=== PATIENT | male | born 1955 | race Caucasian/White ===

== ENCOUNTER → 2017-12-31 18:20 | Outpatient (REF) | payer BC, SELFPAY | LOC: LAB 18:20 | PROVIDERS: Visit Provider Urology | DX: N99.89 Other postprocedural complications and disorders of genitourinary system (principal) | CPT/HCPCS: 87086 ==

== ENCOUNTER → 2019-06-15 10:25 | Outpatient (CLI) | payer BC, SELFPAY ==
--- NOTE | 2019-06-15 10:29 | XR_ITS ---
XR shoulder RT min 2V HISTORY: ITS.REASON: FALL 06/11/19 RT SHOULDER PAIN ORDERING PHYSICIAN: Juwan Monte PATIENT AGE: 63 years Comparison: None FINDINGS: No fracture or dislocation. No lytic or blastic change. There is normal mineralization. There is narrowing of the caudal aspect of the glenohumeral joint. The right AC joint is normal. IMPRESSION: No acute process. Degenerative change at the glenohumeral joint.
--- NOTE | 2019-06-15 10:29 | XR_ITS ---
XR ribs RT min 3V w CXR1V HISTORY: ITS.REASON: FALL 06/11/19 CHEST PAIN ORDERING PHYSICIAN: Juwan Monte PATIENT AGE: 63 years Comparison: None FINDINGS: Bone density is normal. There is some cortical thickening suggesting old healed posterior lateral right sixth and seventh rib fractures. There is no acute rib fracture. There is a punctate benign calcified granuloma in the right upper lobe. There is a 1.3 cm calcific density overlying the lower pole of the left renal shadow. Impression: No acute rib fracture as discussed above. Right opaque density at the left mid abdomen could be a renal stone although differential would include medication in the bowel or lymph node calcification.
== END ==
PROVIDERS: PCP Internal Medicine; Visit Provider Internal Medicine
DX: R07.89 Other chest pain (principal); M25.511 Pain in right shoulder
CPT/HCPCS: 71101; 73030

== ENCOUNTER → 2019-08-17 10:49 | Outpatient (CLI) | payer BC, SELFPAY ==
--- NOTE | 2019-08-17 11:11 | ECG_ITS ---
APPROVED REPORT Exam: Resting ECG HR:68 bpm ECG Measurements Heart Rate 68 AXES WV 134 P 17 QRSd 68 QRS -8 QT 372 T 40 QTc 395 <Conclusion> Normal sinus rhythm Normal ECG Electronically signed by : Juwan Monte, 08/18/2019 13:09:09
[2019-08-17 11:42] LABS: Basophils % 0.6 % (0.1-2.0); Eosinophils # 0.1 K/mm3 (0.0-0.4); Eosinophils % 1.8 % (0.1-12.0); Hematocrit 49.1 % (42.0-52.0); Lymphocytes # 1.4 K/mm3 (0.7-4.5); Lymphocytes % 21.3 % (10-50); Mean Corpuscular HGB Conc 34.6 g/dL (31.8-35.4); Mean Corpuscular Hemoglobin 32.5 pg (27.0-31.2); Mean Platelet Volume 8.3 fl (7.4-10.4); Monocytes # 0.3 K/mm3 (0.1-1.0); Monocytes % 5.4 % (1.7-9.3); Neutrophils # 4.5 K/mm3 (1.8-7.8); Platelet Count 294 K/mm3 (142-424); Red Blood Count 5.22 M/mm3 (4.60-6.20); White Blood Count 6.3 K/mm3 (4.8-10.8)
[2019-08-17 12:46] LABS: Alanine Aminotransferase 26 U/L (12-78); Albumin Level 3.9 gm/dL (3.4-5.0); Albumin/Globulin Ratio 1.4 (1.1-1.8); Alkaline Phosphatase 88 U/L (46-116); Anion Gap 12.3 mEq/L (5-15); Aspartate Amino Transferase 18 U/L (15-37); Bilirubin,Total 0.8 mg/dL (0.2-1.0); Blood Urea Nitrogen 17 mg/dL (7-18); Calcium 9.3 mg/dL (8.5-10.1); Carbon Dioxide 31 mmol/L (21.0-32.0); Chloride 102 mmol/L (98-107); Creatinine,Serum 0.84 mg/dL (0.70-1.30); Estimated Glomerular Filt Rate 92 ml/min (>60); GFR (African American) 112 ML/MIN (>60); Globulin 2.8 gm/dl (1.3-3.2); Glucose 91 mg/dL (74-106); Potassium 4.3 mmoL/L (3.5-5.1); Sodium 141 mmol/L (136-145); Total Protein,Serum 6.7 gm/dL (6.4-8.2)
== END ==
PROVIDERS: PCP Internal Medicine; Visit Provider Internal Medicine
DX: Z01.818 Encounter for other preprocedural examination (principal); I10 Essential (primary) hypertension
CPT/HCPCS: 36415; 80053; 85025; 93005

== ENCOUNTER → 2019-09-09 10:51 | Outpatient (CLI) | payer BC, SELFPAY | PROVIDERS: Visit Provider Urology | DX: Z12.5 Encounter for screening for malignant neoplasm of prostate (principal) | CPT/HCPCS: 36415; G0103 ==

== ENCOUNTER 2019-12-10 08:30 | Outpatient (RCR) | payer BC, SELFPAY | END 2019-12-10 08:35 | disposition home or self-care (01) | LOC: PT 08:30 | PROVIDERS: PCP Internal Medicine; Visit Provider Orthopaedic Surgery | DX: M75.101 Unspecified rotator cuff tear or rupture of right shoulder, not specified as traumatic (principal) | CPT/HCPCS: 97010; 97014; 97016; 97110; 97140; 97163; 97164; G0283 ==

== ENCOUNTER 2020-11-26 09:39 | Emergency (ER) | payer MEDICARE, SELFPAY ==
[2020-11-26 10:05] VITALS: BP 125/81; PULSE 65; RESP 20; TEMP 37.1; O2SAT 97; BMI 24.3
--- NOTE | 2020-11-26 10:17 | HMH.EDUTC ---
[facility] [place] Impression: Low back pain Qualifiers: Chronicity: acute Back pain laterality: left Sciatica presence: with sciatica Sciatica laterality: sciatica of left side Qualified Code(s): M54.42 - Lumbago with sciatica, left side Radiculopathy Qualifiers: Spinal region: lumbar Qualified Code(s): M54.16 - Radiculopathy, lumbar region Disposition: Home, Self-Care Condition on Discharge: Good Instructions: DI for Low Back Pain, DI for Sciatica Additional Instructions: Go home and rest. It would be best if you rested tomorrow too. No heavy lifting. No twisting. Take the oral medications as directed. The muscle relaxer (robaxin) will make you drowsy, so don't drive or operate heavy machinery after taking it. Don't start the oral steroids (medrol dose pack) until tomorrow, since you had the shots in here today. Follow up with your regular doctor. GO TO THE ER FOR ANY WORSENING SYMPTOMS OR CONCERN, ESPECIALLY BOWEL OR BLADDER ISSUES, SADDLE AREA NUMBNESS, FEVER, ETC *Increase fluids. Water not Soda or Tea Prescriptions: methylPREDNISolone [Medrol] 4 mg PO DIRECTED 6 Days #21 tab.ds.pk Transmission Status: Received by [id number] Methocarbamol [Robaxin 500mg Tab] 500 mg PO BIDP PRN #30 tab PRN Reason: Muscle Spasm Transmission Status: Received by [id number] Referrals: Juwan Monte [Primary Care Provider] - Time of Disposition: 10:46 Medical Decision Making - Medical Records Medical records reviewed: No: I reviewed the patient's medical records. - Jackson Inquiry Pt receiving controlled substance: No Vital Signs: 11/26/20 10:05 11/26/20 10:48 Temperature 98.8 F 98.8 F Temperature Source Oral Pulse Rate 65 Pulse Rate [Right Brachial] 65 Respiratory Rate 20 20 Blood Pressure 125/81 Blood Pressure [Right Arm] 125/81 Blood Pressure Mean [Right Arm] 95 Blood Pressure Source [Right Arm] Automatic Cuff Blood Pressure Position [Right Arm] Sitting 02 Sat by Pulse Oximetry 97 Oxygen Delivery Method Room Air Orders (Tests/Meds): ED MEDICATIONS Discontinued Medications Generic Name Dose Route Start Last Admin Trade Name Freq PRN Reason Stop Dose Admin Ketorolac Tromethamine 60 mg 11/26/20 10:27 11/26/20 10:34 Ketorolac 60mg/2ml Vial IM 11/26/20 10:28 60 mg ONCE ONE Administration Methylprednisolone Sodium Succinate 125 mg 11/26/20 10:27 11/26/20 10:34 Methylprednisolone Sod Succ 125mg Vial IM 11/26/20 10:28 125 mg ONCE ONE Administration [facility] [place] - General Stated complaint: lower back pain, no ao Time Seen by Provider: 11/26/20 10:17 - History of Present Illness Provider Complaint: He states that he bent over yesterday and he must have pulled something in his back. He has had low back pain that radiates down his left leg. He has a long history of low back pain. - Related Data Home Medications Medication Instructions Recorded Confirmed hydrochlorothiazide 25 mg tablet 25 mg PO DAILY 09/09/18 09/08/19 nebivolol 5 mg tablet 5 mg PO DAILY 09/09/18 09/08/19 Previous Rx's Medication Instructions Recorded Cyclobenzaprine HCl [Flexeril 10mg 10 mg PO TID PRN #15 tab 01/03/20 tablet] methylPREDNISolone [Medrol 4mg 4 mg PO DIRECTED #21 tab 01/03/20 tab] Methocarbamol [Robaxin 500mg Tab] 500 mg PO BIDP PRN #30 tab 11/26/20 methylPREDNISolone [Medrol] 4 mg PO DIRECTED 6 Days #21 11/26/20 tab.ds.pk Allergies Allergy/AdvReac Type Severity Reaction Status Date / Time Sulfa (Sulfonamide Allergy Unknown SWELLING Verified 09/08/19 11:24 Antibiotics) lisinopril Allergy Verified 09/08/19 11:24 [facility] History - Hepatitis A Screen Attestation statement:: This patient has been screened for Hepatitis A risk factors. I have reviewed the patient's past medical history: Yes Medical History: Reports:: Hyperlipidemia Other Medical History: Reports: Arthritis Laterality Cases:
[2020-11-26 10:48] VITALS: BP 125/81; PULSE 65; RESP 20; TEMP 37.1; O2SAT 97
== END 2020-11-26 10:50 | disposition home or self-care (01) ==
PROVIDERS: Emergency Provider Nurse Practitioner Family; PCP Internal Medicine
DX: M54.42 Lumbago with sciatica, left side (principal); M54.16 Radiculopathy, lumbar region; E78.5 Hyperlipidemia, unspecified; Z79.899 Other long term (current) drug therapy
CPT/HCPCS: G0463; 96372; 99202

== ENCOUNTER → 2021-03-29 14:42 | Outpatient (CLI) | payer MEDICARE, SELFPAY ==
--- NOTE | 2021-03-29 14:38 | ECG_ITS ---
APPROVED REPORT Exam: Resting ECG HR:73 bpm ECG Measurements Heart Rate 73 AXES ID 154 P 61 QRSd 80 QRS 30 QT 378 T 35 QTc 416 Conclusion Normal sinus rhythm Normal ECG Electronically signed by : Gino Baker, 03/29/2021 16:55:21
--- NOTE | 2021-03-29 14:48 | XR_ITS ---
PROCEDURE: XR CHEST 2V CLINICAL HISTORY: Z01.818, M54.5 Shortness of breath COMPARISON: CR CXR CHEST(2 VIEWS-NOT PORTABLE) from 06/19/[address] CHEST W/O CONTRAST from 06/26/2017 FINDINGS: The cardiomediastinal silhouette and pulmonary vascularity are within normal limits. Chronic changes are present in the right midlung consistent with some scarring. No lobar consolidation or collapse. Degenerative changes with spurring noted in the midthoracic spine anteriorly IMPRESSION: No change with no acute finding Dictated by: Jose Aguayo MD 03/29/2021 15:02 Jose Aguayo MD in [place] 03/29/2021 15:02
== END ==
PROVIDERS: PCP Internal Medicine; Visit Provider Internal Medicine
DX: Z01.818 Encounter for other preprocedural examination (principal); M54.5 Low back pain
CPT/HCPCS: 71046; 93005

== ENCOUNTER → 2022-06-27 12:59 | Outpatient (CLI) | payer MEDICARE, SELFPAY ==
[2022-06-27 13:58] LABS: Alanine Aminotransferase 33 U/L (12-78); Albumin Level 4.1 g/dl (3.5-5.0); Albumin/Globulin Ratio 1.8 (1.1-1.8); Alkaline Phosphatase 106 U/L (38-126); Anion Gap 12.1 mEq/L (5-15); Aspartate Amino Transferase 35 U/L (17-59); Blood Urea Nitrogen 13 mg/dl (9-20); Carbon Dioxide 26 mmol/L (22.0-30.0); Chloride 106 mmol/L (98-107); Chol/HDL Ratio 5.4 (1-3.5); Cholesterol 232 mg/dl (140-200); Estimated Glomerular Filt Rate 97 ml/min (>60); GFR (African American) 117 ML/MIN (>60); Globulin 2.3 g/dL (1.3-3.2); Glucose 93 mg/dl (74-100); HDL Cholesterol 43 mg/dl (40-60); Potassium 4.1 mmoL/L (3.5-5.1); Sodium 140 mmol/L (136-145); Total Protein,Serum 6.4 g/dl (6.3-8.2); Triglycerides 146 mg/dl (30-150); VLDL Cholesterol 29 mg/dL (0-40)
[2022-06-27 14:05] LABS: Erythrocyte Sedimentation Rate 8 mm/hr (0-20)
[2022-06-27 14:10] LABS: Basophils % 0.4 % (0.1-2.0); Direct LDL Cholesterol 161.14 mg/dL (100-129); Eosinophils # 0.1 K/mm3 (0.0-0.4); Eosinophils % 2.1 % (0.1-12.0); Hematocrit 48.6 % (42.0-52.0); Hemoglobin 16.2 g/dL (14.1-18.0); Lymphocytes # 1.2 K/mm3 (0.7-4.5); Lymphocytes % 25.7 % (10-50); Mean Corpuscular HGB Conc 33.2 g/dL (31.8-35.4); Mean Corpuscular Volume 96.2 fl (80-94); Mean Platelet Volume 9.8 fl (7.4-10.4); Monocytes # 0.4 K/mm3 (0.1-1.0); Monocytes % 7.9 % (1.7-9.3); Neutrophils # 2.9 K/mm3 (1.8-7.8); Platelet Count 333 K/mm3 (142-424); Red Blood Count 5.05 M/mm3 (4.60-6.20); Red Cell Distribution Width 13.3 % (11.5-17.5); White Blood Count 4.5 K/mm3 (4.8-10.8)
[2022-06-27 14:29] LABS: Thyroid Stimulating Hormone 1.63 uIU/mL (0.465-4.68)
[2022-06-27 14:47] LABS: Hemoglobin A1C 5.2 % (4.0-6.0)
[2022-06-27 15:04] LABS: Vitamin B12 452 pg/mL (239-931)
[2022-06-27 15:12] LABS: Folate > 20.00 ng/mL
[2022-06-28 14:11] LABS: Albumin 3.6 g/dL (2.9-4.4); Alpha-1-Globulin 0.2 g/dL (0.0-0.4); Alpha-2-Globulin 0.7 g/dL (0.4-1.0); Gamma Globulin 0.7 g/dL (0.4-1.8); Protein, Total 6.2 g/dL (6.0-8.5)
== END ==
PROVIDERS: PCP Internal Medicine; Visit Provider Internal Medicine
DX: G60.9 Hereditary and idiopathic neuropathy, unspecified (principal); I10 Essential (primary) hypertension; Z79.899 Other long term (current) drug therapy
CPT/HCPCS: 80053; 80061; 82607; 82746; 83036; 84155; 84165; 84443; 85025; 85651

== ENCOUNTER → 2022-08-23 07:40 | Outpatient (CLI) | payer MEDICARE, SELFPAY ==
--- NOTE | 2022-08-23 08:04 | XR_ITS ---
FINAL REPORT CLINICAL HISTORY: Neck pain, abnormal reflexes and sensation FINDINGS: CERVICAL SPINE 6 views including flexion and extension were obtained. There is no acute fracture. There is no malalignment. There is moderate diffuse degenerative disc disease with moderate facet arthropathy. There is osteopenia. Bony neural foraminal narrowing is suspected at multiple levels. No instability or malalignment is noted during flexion and extension maneuvers. There is no soft tissue abnormality. IMPRESSION: Osteopenia with moderate diffuse degenerative disc disease and moderate facet arthropathy. No instability or malalignment is noted during flexion and extension maneuvers. Reviewed, Interpreted and Dictated by Megan Squires MD Transcribed by Rosalind Fish Authenticated and [facility]
--- NOTE | 2022-08-23 08:30 | MR_ITS ---
FINAL REPORT TECHNIQUE: Multiplanar MR without gadolinium enhancement CLINICAL HISTORY: Neck pain, abnormal reflex and sensation. neuropathy bilateral hands and feet. symptoms for 4-5years. unable to fully turn head to the left. FINDINGS: Limited images of the posterior fossa are unremarkable. There is minimal retrolisthesis of L4 on L5. Cervical spinal cord shows normal signal and contour. C2-3: Unremarkable. C3-4: A mild annular disc bulge is present. There is a moderate central disc protrusion with ligamentum flavum hypertrophy. There is moderate central canal stenosis and severe bilateral neural foraminal narrowing. C4-5: A moderate annular disc bulge is present with significant bony hypertrophic changes. There is severe left and moderate right neural foraminal narrowing. C5-6: There is moderate facet arthropathy and moderate bilateral neural foraminal narrowing. C6-7: A a mild annular disc bulge is present with moderate facet arthropathy. C7-T1: A minimal annular disc bulge is present with mild facet arthropathy. IMPRESSION: Diffuse degenerative changes, most pronounced at C3-4 and C4-5, with significant central canal stenosis and neural foraminal narrowing. Reviewed, Interpreted and Dictated by Megan Squires MD Transcribed by Rosalind Fish Authenticated and [facility]
[2022-08-25 09:54] LABS: Zinc 102 ug/dL (44-115)
[2022-08-27 14:36] LABS: Arsenic, Blood 2 ug/L (0-9); Lead, Blood 1 ug/dL (0-4); Mercury, Blood <1.0 ug/L (0.0-14.9)
[2022-08-28 11:12] LABS: Vitamin E Alpha Tocopherol 10.6 mg/L (9.0-29.0); Vitamin E Gamma Tocopherol 1.6 mg/L (0.5-4.9)
[2022-09-03 16:11] LABS: IgG P18 Ab. Absent (.); IgG P23 Ab. Absent (.); IgG P28 Ab. Absent (.); IgG P30 Ab. Absent (.); IgG P39 Ab. Absent (.); IgG P41 Ab. Absent (.); IgG P45 Ab. Absent (.); IgG P58 Ab. Absent (.); IgG P66 Ab. Absent (.); IgG P93 Ab. Absent (.); IgM P23 Ab. Present (.); IgM P39 Ab. Absent (.); IgM P41 Ab. Absent (.); Lyme IgG WB Interp. Negative (.); Lyme IgM WB Interp. Negative (.)
== END ==
PROVIDERS: PCP Internal Medicine; Visit Provider Nurse Practitioner Family
DX: M54.2 Cervicalgia; G62.89 Other specified polyneuropathies
CPT/HCPCS: 36415; 72052; 72141; 76376; 82175; 82525; 83655; 83825; 84446; 84630; 86617

== ENCOUNTER → 2023-04-26 08:50 | Outpatient (CLI) | payer MEDICARE, SELFPAY ==
[2023-04-26 09:58] LABS: Calcium 8.6 mg/dl (8.4-10.2); Phosphorous 3.2 mg/dl (2.5-4.5)
[2023-04-26 10:16] LABS: 25-OH Vitamin D, Total 36.4 ng/mL (30-100)
== END ==
PROVIDERS: PCP Internal Medicine; Visit Provider Nurse Practitioner Family
DX: M85.89 Other specified disorders of bone density and structure, multiple sites (principal)
CPT/HCPCS: 36415; 82306; 82310; 84100

== ENCOUNTER 2024-04-03 17:05 | Outpatient (CLI) | payer MEDICARE, SELFPAY ==
[2024-04-03 17:43] LABS: Basophils # 0.1 K/mm3 (0-0.2); Basophils % 0.9 % (0.1-2.0); Eosinophils # 0.2 K/mm3 (0.0-0.4); Eosinophils % 3.1 % (0.1-12.0); Hemoglobin 16.8 g/dL (14.1-18.0); Lymphocytes # 1.4 K/mm3 (0.7-4.5); Lymphocytes % 24.4 % (10-50); Mean Corpuscular Hemoglobin 32.2 pg (27.0-31.2); Mean Corpuscular Volume 97.6 fl (80-94); Mean Platelet Volume 8.6 fl (7.4-10.4); Monocytes # 0.4 K/mm3 (0.1-1.0); Monocytes % 7.4 % (1.7-9.3); Neutrophils # 3.7 K/mm3 (1.8-7.8); Neutrophils % 64.3 % (37.0-80.0); Platelet Count 280 K/mm3 (142-424); Red Blood Count 5.23 M/mm3 (4.60-6.20); Red Cell Distribution Width 13.5 % (11.5-17.5); White Blood Count 5.8 K/mm3 (4.8-10.8)
[2024-04-03 18:03] LABS: Chloride 104 mmol/L (98-107); Potassium 4.1 mmoL/L (3.5-5.1); Sodium 139 mmol/L (136-145)
[2024-04-03 18:05] LABS: Alanine Aminotransferase 25 U/L (12-78); Aspartate Amino Transferase 31 U/L (17-59); Blood Urea Nitrogen 15 mg/dl (9-20); Estimated Glomerular Filt Rate 96 ml/min (>60); GFR (African American) 116 ML/MIN (>60)
[2024-04-03 18:06] LABS: Albumin Level 4.3 g/dl (3.5-5.0); Albumin/Globulin Ratio 1.9 (1.1-1.8); Alkaline Phosphatase 78 U/L (38-126); Anion Gap 12.1 mEq/L (5-15); Calcium 9.5 mg/dl (8.4-10.2); Carbon Dioxide 27 mmol/L (22.0-30.0); Chol/HDL Ratio 5.5 (1-3.5); Cholesterol 257 mg/dl (140-200); Globulin 2.3 g/dL (1.3-3.2); Glucose 86 mg/dl (74-100); HDL Cholesterol 47 mg/dl (40-60); Total Protein,Serum 6.6 g/dl (6.3-8.2); Triglycerides 231 mg/dl (30-150); VLDL Cholesterol 46 mg/dL (0-40)
[2024-04-03 18:17] LABS: Direct LDL Cholesterol 170.22 mg/dL (100-129)
== END 2024-04-03 23:59 | disposition home or self-care (01) ==
LOC: LAB.DROPOF 17:06
PROVIDERS: PCP Internal Medicine; Visit Provider Internal Medicine
DX: E78.5 Hyperlipidemia, unspecified (principal); G60.9 Hereditary and idiopathic neuropathy, unspecified; I10 Essential (primary) hypertension
CPT/HCPCS: 80053; 80061; 85025

== ENCOUNTER 2024-05-13 10:02 | Outpatient (CLI) | payer MEDICARE, SELFPAY ==
[2024-05-13 17:14] LABS: Basophils % 0.3 % (0.1-2.0); Eosinophils # 0.2 K/mm3 (0.0-0.4); Eosinophils % 2.5 % (0.1-12.0); Hematocrit 48.4 % (42.0-52.0); Hemoglobin 16.6 g/dL (14.1-18.0); Lymphocytes # 1.2 K/mm3 (0.7-4.5); Lymphocytes % 19.2 % (10-50); Mean Corpuscular HGB Conc 34.3 g/dL (31.8-35.4); Mean Corpuscular Hemoglobin 32.5 pg (27.0-31.2); Mean Corpuscular Volume 94.8 fl (80-94); Mean Platelet Volume 8.9 fl (7.4-10.4); Monocytes # 0.4 K/mm3 (0.1-1.0); Monocytes % 6.4 % (1.7-9.3); Neutrophils # 4.4 K/mm3 (1.8-7.8); Neutrophils % 71.7 % (37.0-80.0); Platelet Count 272 K/mm3 (142-424); Red Cell Distribution Width 13.8 % (11.5-17.5); White Blood Count 6.1 K/mm3 (4.8-10.8)
[2024-05-13 17:21] LABS: Alanine Aminotransferase 26 U/L (12-78)
== END 2024-05-13 23:59 | disposition home or self-care (01) ==
LOC: LAB.DROPOF 05-14 10:03
PROVIDERS: PCP Internal Medicine; Visit Provider Internal Medicine
DX: B35.1 Tinea unguium (principal)
CPT/HCPCS: 84460; 85025

== ENCOUNTER 2024-09-21 16:55 | Outpatient (CLI) | payer MEDICARE, SELFPAY ==
[2024-09-21 17:49] LABS: Prostate Specific Ag Screen 0.8 ng/ml (0.0-4.0)
== END 2024-09-21 23:59 | disposition home or self-care (01) ==
LOC: LAB.DROPOF 16:56
PROVIDERS: PCP Internal Medicine; Visit Provider Internal Medicine
DX: Z12.5 Encounter for screening for malignant neoplasm of prostate (principal)
CPT/HCPCS: G0103

== ENCOUNTER 2025-09-07 07:17 | Outpatient (CLI) | payer MEDICARE, SELFPAY ==
--- OUTSIDE RECORDS SUMMARY | 2025-09-07 07:21 | XMS_ITS | Data Portability ---
Author Organization АНН[facility] - Ben suárez MD, Main Office Address [address] [place] [address], [facility] [address] [place] [address] Care Team Providers Care Outpatient Program Coordinator Name Role Phone DAMARIS BROWNE Primary Care Provider Assessment No assessment recorded. Plan of Treatment Reminders Order Date Submit Date Provider Last Modified By Organization Details Last Modified Time Details Appointments None record ed. Lab None record ed. Referral None record ed. Procedures None record ed. Surgeries None record ed. Imaging None record ed. Medication Orders None record ed. Patient TargetsNo targets recorded. Patient Instructions Encounter Date Encounter Id Patient Instructions Last Modified By Organization Details Last Modified Time 07/31/2022 [id number] Neuropathic Pain : Care Instructions [email or web address] Not available 07/31/2022 09:09:16 Reason for Referral None Reported. Results Created Date Observation Date Name Description Value Unit Range Abnormal Flag Note LastModifiedBy Organization Detail LastModifiedTime 07/31/20 22 07/31/2022 elect romyo gram + nerve condu ction study No observ ation record ed. BARCODE Not Available 2021 09:17:14 Result Notes None recorded. Problems No Known Problems Procedures Surgical History Date Name Laterality Status Provider Name and Address Organization Details Recorded Time 07/31/2022 NCV/EMG completed Ruiz Salas MD 07/31/2022 09:08:46 Imaging Results None recorded. Procedure Notes None recorded. Medical Equipment None Reported. Allergies No known drug allergies Medications Name Sig Start Date Stop Date Status Note LastModified by Organization Details LastModified Time bisoprolol fumarate 5 mg tablet TAKE 1 TABLET BY MOUTH ONCE DAILY FOR BLOOD PRESSURE active Not Available Not Available No t Available meloxicam 7.5 mg tablet TAKE 1 TABLET BY MOUTH TWICE DAILY WITH FOOD active Not Available Not Available No t Available erythromycin 5 mg/gram (0.5 %) eye ointment active Not Available Not Available Not Available gabapentin 300 mg capsule TAKE 1 CAPSULE BY MOUTH TWICE DAILY FOR 30 DAYS active Not Available Not Available No t Available hydrochlorothi azide 25 mg tablet TAKE 1 TABLET BY MOUTH IN THE MORNING FOR BLOOD PRESSURE active Not Available Not Available No t Available fluticasone propionate 50 mcg/actuation nasal spray,suspensi on USE 2 SPRAY(S) IN EACH NOSTRIL AT BEDTIME active Not Available Not Available No t Available sildenafil (pulmonary hypertension) 20 mg tablet TAKE 3 TABLETS BY MOUTH ONCE DAILY NEEDED active Not Available Not Available No t Available Suprep Bowel Prep Kit 17.5 gram-3.13 gram-1.6 gram oral solution TAKE DIRECTED active Not Available Not Available No t Available Vitals None Recorded Social History None recorded. Functional Status None recorded. Mental Status None recorded. Family History Nothing Reported. Medical History No medical history recorded. Past Encounters Encounter ID Performer Location Encounter Start Date Encounter Closed Date Diagnosis/Indication Diagnosis SNOMED-CT Code Diagnosis ICD10 Code Diagnosis IMO Codes Diagnosis Note [id number] Ben Salas MD Main Office [address] [facility], [facility] [address] [place] [address] 07/31/2022 08:15:19 07/31/2022 09:10:42 Idiopathic peripheral neuropathy 52455040 G60.9 Moderate to severe generalize d peripheral neuropathy . Health Concerns Section Related Observation LastModified by Organization Detai ls LastModified Time None Recorded Concern Status LastModified by Organization Details LastModified Time None Recorded Advance Directives Directive None Recorded Payers Insurance Date Sequence Insurance Name Policy Number Policy Guzman Covered Member ID Guzman Member ID Guarantor Name 07/31/2022 1 RIGO-АННА: JUANIS [place] OF [place] - [employer] ACCESS (MEDICARE REPLACEMENT REGIONAL O) [id number] Merlin Lopez [id number] Merlin Lopez
--- OUTSIDE RECORDS SUMMARY | 2025-09-07 07:21 | XMS_ITS | Referral Summary ---
Author Organization [employer] ([place], [place], [place], [place]) Address [address] [place] [address] Care Team Providers Care Log Brander Name Role Phone Juwan Monte MD Primary Care Provider [phone] Allergies Active Allergy Reactions Criticality Noted Date Comments Lisinopril Anaphylaxis,Swelling High 04/10/2021 Sulfa (Sulfonamide Antibiotics) Anaphylaxis,Hives,Itching, Swelling High 02/27/2023 Medications hydroCHLOROthia zide (HYDRODIURIL) 25 MG tablet Take 1 tablet (25 mg total) by mouth nightly. 12/21/2022 Active bisoprolol (ZEBETA) 5 MG tablet Take 1 tablet (5 mg total) by mouth nightly. 12/21/2022 Active gabapentin (NEURONTIN) 300 MG capsule Take by mouth 2 (two) times daily 1 CAPSULE IN AM, 2 CAPSULES AT NIGHT. 02/11/2023 Active fluticasone propionate (FLONASE) 50 mcg/actuation nasal spray 2 sprays by Nasal route nightly. 12/07/2022 Active sildenafiL, pulm.hypertensi on, (REVATIO,VIAGRA ) 20 mg tablet Take 1 tablet (20 mg total) by mouth as needed. Active Ubidecar/Fish Oil/Tunica-3/Vit E (CO L13-GTON OIL-OMEGA 3-E ORAL) Take by mouth. Active diphenhydramine HCl (ZZZQUIL ORAL) Take by mouth every night as needed 2 GUMMIES. Active Social History Tobacco Use Types Packs/Day Years Used Date Smoking Tobacco: Former Cigarettes 0.5 8 1 974 - 1981 Smokeless Tobacco: Never Tobacco Cessation:Counseling Given: Not Answered Alcohol Use Standard Drinks/Week Comments Yes 0 (1 standard drink = 0.6 oz pur e alcohol) 1 DRINK EVERY 2 WEEKS Food Insecurity Answer Date Recorded Food run out past 12 months Not on file 11/25 Food did not last past 12 months Not on file 12/13/2023 Employment Answer Date Recorded Help finding and keeping a job Not on file 0 12/13/2023 Family and Community Support Answer Boni e Recorded Help with Day to Day Activities Not on file 12/13/2023 Feeling Lonely or Isolated Not on file 12/13 Educational Attainment Answer Date Edu rded Speak language other than Sudanese at home Not on file 12/13/2023 Want help with school or training Not on file 12/13/2023 Substance Use Answer Date Recorded Used prescription meds for non-medical reasons N ot on file 12/13/2023 Used illegal drugs past 12 months Not on file 12/13/2023 Sex and Gender Information Value Date Recorded Sex Assigned at Not on file Legal Sex Male 8:13 PM CDT Gender Identity Not on file Sexual Orientation Not on file Last Filed Vital Signs Vital Sign Reading Time Taken Comments Blood Pressure 136/76 03/06/2023 2:41 PM EDT Pulse 60 03/06/2023 2:41 PM EDT Temperature 36.3 C (97.4 F) 03/06/2023 2:41 PM EDT Respiratory Rate 20 03/06/2023 2:41 PM EDT Oxygen Saturation 100% 03/06/2023 2:41 PM EDT Inhaled Oxygen Concentration - - Weight 81.6 kg (180 lb) 02/27/2023 8:46 AM EDT Height 176.5 cm (5' 9.5 ) 02/27/2023 8:46 AM EDT Body Mass Index 26.2 02/27/2023 8:46 AM EDT Plan of Treatment Not on file Medical Devices Implanted Type Area [employer] Worker Device Identifier Shelf Expiration Date Model / Serial / Lot Bone Vivigen Formable [id number] - [id number] Implanted:Qty: 1 on 03/06/2023 by Quan Perkins MD at [facility] IMPLANTS N/A: Neck LIFENET:LIFENET TRANSPLANT SRV 02/05/2024 [id number] / Cage Eit Cif H 6mm 8deg L [id number] - [id number] Implanted:Qty: 2 on 03/06/2023 by Quan Perkins MD at [facility] IMPLANTS N/A: Neck J &J:DEPUY:DEPUY SPINE 05/24/2026 [id number] / / [id number] Plt Ant Skyln Hybrd Lvl2 32mm - [id number] Implanted:Qty: 1 on 03/06/2023 by Quan Perkins MD at [facility] IMPLANTS N/A: Neck J &J:DEPUY:DEPUY SPINE 1867-[birth year]-28 2 / 1867-12-28 2 / Scr Skyln Vari Sd 18mm 018 - [id number] Implanted:Qty: 6 on 03/06/2023 by Quan Perkins MD at [facility] IMPLANTS N/A: Neck J &J:DEPUY:DEPUY SPINE 8 / 8 / Insurance [address] [place] [id number] [facility] ACCESS PPO MAP Care Teams Log Brander Relationship Specialty Start Date End Date Juwan Monte MD [address] [place] [address] [place] [address] PCP - General General Internal Medicine 02/13/23
--- OUTSIDE RECORDS SUMMARY | 2025-09-07 07:21 | XMS_ITS | Data Portability ---
Author Organization [facility] Address [address] [facility] [address] [place] [address] Care Team Providers Care Surtass Analyst Name Role Phone DAMARIS BROWNE Primary Care Provider [phone] Assessment Encounter Date Assessment Date Assessment LastModified by Organization Details LastModified Time 02/04/2023 02/04/2023 Imaging: [facility] C-spine MRI 08-23-2022 radiology report imaging reviewed by myself and Dr. Pacheco -Diffuse degenerative changes, C3-4 and C4-5 with moderate to severe central canal stenosis Assessment and plan:Patient is a 67-year-old male status post L3-5 laminectomy in 2008 and fusion [place] [address] Quarles presents today for cervical evaluation with MRI disc. Patient's central stenosis at C3-5 is significant enough to be causing patient's symptoms. Dr. Pacheco offered a C3-5 ACDF. The discussed [id number] of the procedure with spine model including surgical risks and postsurgical restrictions. Patient verbalized understanding of risks and would like to proceed with surgical intervention. Discussed possibility of dysphagia and hoarseness of voice post surgery. We will have patient will stay overnight at hospital. He will meet with chief crew scheduler. Patient verbalized understanding of instructions and is agreeable to plan. -Seen by Dr. Pacheco and myself [email or web address] Not available 02/04/2023 12:14:45 04/11/2023 04/11/2023 Mr. Lopez is a 67-year-old gentleman status post C3-4 and C4-5 ACDF on March 06, 2023. His x-rays today look great. I gave him a printed copy. I reassured him that the swallowing issues and hoarse nests will continue to resolve. We will see him back in a couple months with repeat x-rays of the cervical spine. [email or web address] Not available 04/11/2023 11:22:13 06/24/2023 06/24/2023 Mr. Lopez is a 69-year-old gentleman status post C3-4 and C4-5 ACDF performed on March 06, [address] Pacheco presents today for second postop visit. He has no x-rays today.. He is doing well with good relief of his symptoms. He has had some swallowing and hoarseness difficulties which have improved. We discussed seeing ENT but he would like to hold on this. He continues having difficulty with swallowing in the form of bread. He reports some hoarseness, unable to yell and sing. He reports he feels this is improving with time. His dysphagia and hoarseness should continue to improve with time. We will have patient follow-up in 3 months to monitor progress. Patient verbalized understand instructions and is agreeable to plan. [email or web address] Not available 06/24/2023 11:27:30 Plan of Treatment Reminders Order Date Submit Date Provider Last Modified By Organization Details Last Modified Time Details Appointments None record ed. Lab None record ed. Referral None record ed. Procedures None record ed. Surgeries None record ed. Imaging None record ed. Medication Orders None record ed. Patient TargetsNo targets recorded. Patient InstructionsNo instructions recorded. Reason for Referral None Reported. Results Created Date Observation Date Name Description Value Unit Range Abnormal Flag Note LastModifiedBy Organization Detail LastModifiedTime 02/06/2008/23/2022 XR, cervi [place] spine No observ ation record ed. BARCODE Not Available 2022 10:17:24 04/11/20 23 04/11/2023 XR, cervi [place] spine , 2 or 3 view [place] [facility] [address] [facility] [place] [address] Patijose carlos t Name: POLLY gomez : [birth year] Patijose carlos t 0 Orderi ng Provid er: CHANCE PACHECO EXAM DATE: 2022 EXAM: XR CERVIC AL AP/LAT CLINIC AL INFORM ATION: Postop erativ e. IMAGES PROVID ED: AP, and latera l views of the cervic al spine. COMPAR ERICK: None. FINDIN GS AND IMPRES JOSE: Spinal fusion is noted at C3-C5 level. Surgic al hardwa re is satisf actori ly placed . No eviden ce of loosen ing or infect ion is seen. Other levels are normal . Interp reted By: Arvind Rubin MD Electr onical ly Signed By: Arvind Rubin MD on 023 2:18 PM [facility] [address], [phone], 04/23/2023 19:38:32 06/24/20 23 06/24/2023 XR, cervi [place] spine , 2 [place] [address] [place] [address] Patijose carlos t Name: POLLY Henderson t : [birth year] Patien t 0 Orderi ng Provid er: CHANCE PACHECO EXAM DATE: 2022 EXAM: XR CERVIC AL AP/LAT CLINIC AL INFORM ATION: Postop erativ e. IMAGES PROVID ED: AP, latera l, open mouth and swimme r's views of the cervic al spine. COMPAR ERICK: None. FINDIN GS AND IMPRES JOSE: Anteri or spinal fusion is noted at C3-C5 level with compre ssion plate and screws . Surgic al hardwa re is satisf actori ly placed . No eviden ce of loosen ing or infect ion is seen. Degene rative change s are seen at other levels . Interp reted By: Arvind Rubin MD Electr onical ly Signed By: Arvind Rubin MD on 023 11:03 AM [facility] [address], [phone], 07/30/2023 17:59:28 Result Notes Documentation Provider Name and Address Organization Details Recorded Time Xr, Cervical Spine, 2 Or 3 View : [address] [address] Patient Name: MERLIN LOPEZ Patient : 1955 Patient Ordering Provider: ISAAK PACHECO EXAM DATE: 04/11/2023 EXAM: XR CERVICAL AP/LAT CLINICAL INFORMATION: Postoperative. IMAGES PROVIDED: AP, and lateral views of the cervical spine. COMPARISON: None. FINDINGS AND IMPRESSION: Spinal fusion is noted at C3-C5 level. Surgical hardware is satisfactorily placed. No evidence of loosening or infection is seen. Other levels are normal. Interpreted By: Christian Rubin MD K PACHECO MD [address] [place] [address], [phone], [facility] 04/11/2023 14:24:42 Xr, Cervical Spine, 2 Or 3 View : [address] [address] Patient Name: MERLIN LOPEZ Patient : 1955 Patient Ordering Provider: ISAAK PACHECO EXAM DATE: 06/24/2023 EXAM: XR CERVICAL AP/LAT CLINICAL INFORMATION: Postoperative. IMAGES PROVIDED: AP, lateral, open mouth and swimmer's views of the cervical spine. COMPARISON: None. FINDINGS AND IMPRESSION: Anterior spinal fusion is noted at C3-C5 level with compression plate and screws. Surgical hardware is satisfactorily placed. No evidence of loosening or infection is seen. Degenerative changes are seen at other levels. Interpreted By: Christian Rubin MD K PACHECO MD [address] [place] [address], [phone], [facility] 07/19/2023 10:39:02 Procedures Surgical History Date Name Laterality Status Provider Name and Address Organization Details Recorded Time 11/15/20 17 CONTACT LASER VAPORIZATION, WITH TRANSURETHRAL RESECTION OF PROSTATE (SURG) completed Portillo Aleman [facility] 11/19/2017 10:29:34 Imaging Results None recorded. Procedure Notes None recorded. Medical Equipment None Reported. Allergies No known drug allergies Medications Name Sig Start Date Stop Date Status Note LastModified by Organization Details LastModified Time prednisone 10 mg tablet TAKE 4 TABLETS BY MOUTH IN THE MORNING FOR 5 DAYS, THEN TAKE 3 IN THE AM FOR 2 DAYS, THEN TAKE 2 IN THE AM FOR 2 DAYS, THEN TAKE 1 IN THE AM FOR 2 DAYS, THEN STOP. active Not Available Not Available No t Available bisoprolol fumarate 5 mg tablet TAKE 1 TABLET BY MOUTH ONCE DAILY active Not Available Not Available No t Available gabapentin 300 mg capsule TAKE 1 CAPSULE BY MOUTH DIRECTED IN THE MORNING AND 2 EVERY DAY AT BEDTIME active Not Available Not Available No t Available hydrochlorothi azide 25 mg tablet TAKE 1 TABLET BY MOUTH ONCE DAILY active Not Available Not Available No t Available Percocet 5 mg-325 mg tablet Take 1 tablet every 6 hours by oral route as needed. 2022 active Not Available Not Available Not Avai lable fluticasone propionate 50 mcg/actuation nasal spray,suspensi on USE 2 SPRAY(S) IN EACH NOSTRIL AT BEDTIME active Not Available Not Available No t Available sildenafil (pulmonary hypertension) 20 mg tablet TAKE 3 TABLETS BY MOUTH ONCE DAILY active Not Available Not Available No t Available Vitals Date Recorded Body height Body mass index (BMI) Body weight Systolic And Diastolic Provider Name and Address Organization Details Last Updated DateTime 02/04/2023 177.8 cm 25.4 kg/m2 01682.85 g 122/82 mm[Hg] [facility] 02/04/2023 10:42:47 Date Recorded Body height Body mass index (BMI) Body weight Systolic And Diastolic Provider Name and Address Organization Details Last Updated DateTime 04/11/2023 177.8 cm 25.4 kg/m2 06535.85 g 122/82 mm[Hg] [facility] 04/11/2023 11:12:20 Date Recorded Body height Body mass index (BMI) Body weight Systolic And Diastolic Provider Name and Address Organization Details Last Updated DateTime 06/24/2023 177.8 cm 25.7 kg/m2 90851.03 g 100/60 mm[Hg] [facility] 06/24/2023 11:19:46 Social History None recorded. Functional Status None recorded. Mental Status None recorded. Family History Relationship Description Onset Age of this Age Resolved Age Notes LastModified by Organization Details LastModified Time Unspecified Relation Diabetes mellitus [email or web address] Not available 02/04 10:41:03 Unspecified Relation Hypertensive disorder [email or web address] Not available 02/04 10:41:09 Unspecified Relation Cerebrovascu lar accident [email or web address] Not available 10:41:18 Medical History Condition Response Hypertension Y Past Encounters Encounter ID Performer Location Encounter Start Date Encounter Closed Date Diagnosis/Indication Diagnosis SNOMED-CT Code Diagnosis ICD10 Code Diagnosis IMO Codes Diagnosis Note [id number] ARNAUD BROWNE PA-C [facility] [address] [place] [address] 02/04/2023 10:04:52 02/05/2023 04:11:34 Cervical radiculopathy 66389391 M54.12 [id number] ISAAK PACHECO MD SURGERY SCHEDULE [address] [place] [address] 03/21/2023 13:11:23 03/21/2023 16:15:18 [id number] ISAAK PACHECO MD [facility] [address] [place] [address] 04/11/2023 10:16:50 04/12/2023 04:05:26 Postoperative care [id number] Z48.89 [id number] ARNAUD BROWNE PA-C [facility] [address] [place] [address] 06/24/2023 10:42:00 06/25/2023 04:30:28 Cervical radiculopathy [id number] M54.12 Health Concerns Section Related Observation LastModified by Organization Detai ls LastModified Time None Recorded Concern Status LastModified by Organization Details LastModified Time None Recorded Advance Directives Directive None Recorded Payers Insurance Date Sequence Insurance Name Policy Number Policy Guzman Covered Member ID Guzman Member ID Guarantor Name 06/25/2023 1 [place] (MEDICARE [facility]) [id number] Merlin Lopez [id number] Merlin Lopez 02/04/2023 1 [place] [id number] Merlin Lopez [id number] Merlin Lopez Notes Date Note Type Note Provider Name and Address Organization Details Recorded Time 02/04/2023 text/html ROS as noted in the HPI Patient is a 67-year-old male status post L3-5 laminectomy in 2008 and PLIF [place] [address] Quarles presents today for cervical evaluation with MRI disc. Patient has had diffuse numbness and tingling through the UE elbow to fingers 1 and 2 and from the knee into the feet for the last 6 years. Symptoms are gradually worsening. Patient was disappointed with lumbar fusion as his symptoms did not improve. Patient is being evaluated for a polyneuropathy, Charcot Rose tooth (CMT). Patient was sent to us to rule out cervical stenosis causing symptoms. Patient also notes change in gait and balance. He is taking 600 mg gabapentin 3 times daily with little improvement. Patient states that his UE pain worsens with positional changes of the neck. Patient denies issues with dexterity. ARNAUD BROWNE PA-C [facility] [place], [address], [facility] 02/04/2023 12:15:07 04/11/2023 text/html ROS as noted in the HPI Mr. Lopez is a 69-year-old gentleman status post C3-4 and C4-5 ACDF performed on March 06, 2023. He is doing well with good relief of his symptoms. He has had some swallowing and hoarseness difficulties which have improved dramatically at this point. He presents today for his first postoperative visit with x-rays. ISAAK PACHECO MD [address] [place] [address], [phone], [facility] 04/11/2023 11:22:25 06/24/2023 text/html ROS as noted in the HPI Mr. Lopez is a 69-year-old gentleman status post C3-4 and C4-5 ACDF performed on March 06, [address] Pacheco presents today for second postop visit. He has no x-rays today.. He is doing well with good relief of his symptoms. He has had some swallowing and hoarseness difficulties which have improved. We discussed seeing ENT but he would like to hold on this. He continues having difficulty with swallowing in the form of bread. He reports some hoarseness, unable to yell and sing. He reports he feels this is improving with time. ARNAUD BROWNE PA-C [address], [place], [address], [facility] 06/24/2023 11:27:50
--- OUTSIDE RECORDS SUMMARY | 2025-09-07 07:21 | XMS_ITS | Clinical Summary ---
[facility] Organization [facility] Address [address] [place] [address] Care Team Providers Care Jewel Hole Gauger Name Role Phone Juwan Monte MD Primary Care Provider [phone] Allergies Active Allergy Reactions Criticality Noted Date Comments Lisinopril Anaphylaxis High 04/10/2021 Sulfa Antibiotics Anaphylaxis High 04/10/2021 Medications Misc Natural Products (OSTEO BI-FLEX ADV TRIPLE ST PO) Take 1 capsule by mouth 2 (two) times a day. Active multivitamin with minerals (Alive Energy 50+) tablet tablet Take 1 tablet by mouth Daily. 2 gummies Active Krill Oil 350 MG capsule Take 1 capsule by mouth Daily. Active bisoprolol (ZEBeta) 5 MG tablet Take 5 mg by mouth Daily. Active hydroCHLOROthia zide (HYDRODIURIL) 25 MG tablet Take 25 mg by mouth Daily. Active fluticasone (FLONASE) 50 MCG/ACT nasal spray 2 sprays into the nostril(s) as directed by provider Every Night. Active HYDROcodone-kelly taminophen (NORCO) 10-325 MG per tabletIndicatio ns:S/P lumbar fusion Take 1 tablet by mouth Every 6 (Six) Hours As Needed for Moderate Pain . 50 tablet 04/13/2021 1:28 PM EDT 04/13/2021 Active aspirin 81 MG EC tablet Take 1 tablet by mouth Daily. 04/14/2021 Active polyethylene glycol (MIRALAX) 17 GM/SCOOP powder Dissolve 17 g (1 capsul) in water and drink by mouth Daily 238 g 04/13/2021 1:28 PM EDT 04/13/2021 Active Active Problems Problem Noted Date Diagnosed Date Acute blood loss anemia, mild, asymptomatic 03/26 Back pain 04/12/2021 S/P lumbar fusion 04/12/2021 Hypertension 04/12/2021 Social History Tobacco Use Types Packs/Day Years Used Date Smoking Tobacco: Former Cigarettes 0.1 5 Smokeless Tobacco: Never Comments:quit 35 years ago Alcohol Use Standard Drinks/Week Comments Yes 1 (1 standard drink = 0.6 oz pur e alcohol) Abuse Screen Answer Date Recorded Unsafe at Home or Work/School Not on file Feels Threatened by Someone? Not on file 07/2023 Does Anyone Keep You from Co ntacting Others or Doint Things Outside the Home? Not on file 09/02/2023 Physical Sign of Abuse Present Not on file 1 Housing Stability Answer Date Recorded Current Living Arrangements Not on file 07/2023 Potentially Unsafe Housing Conditions Not on reji e 09/02/2023 Family and Community Support Answer Boni e Recorded Help with Day-to-Day Activities Not on file 09/02/2023 Lonely or Isolated Not on file 09/02/2023 Employment Answer Date Recorded Do you want help finding or keeping work or a genaro b? Not on file 09/02/2023 Disabilities Answer Date Recorded Concentrating, Remembering, or Making Decisions Difficulty Not on file 09/02/2023 Doing Errands Independently Difficulty Not on fi le 09/02/2023 Education Answer Date Recorded Help with school or training? Not on file Preferred Language Not on file 09/02/2023 Sex and Gender Information Value Date Recorded Sex Assigned at Not on file Legal Sex Male 10:15 AM EDT Gender Identity Not on file Sexual Orientation Not on file Last Filed Vital Signs Vital Sign Reading Time Taken Comments Blood Pressure 124/68 04/13/2021 10:56 AM EDT Pulse 83 04/13/2021 10:56 AM EDT Temperature 36.7 C (98.1 F) 04/13/2021 10:56 AM EDT Respiratory Rate 16 04/13/2021 10:56 AM EDT Oxygen Saturation 97% 04/13/2021 7:24 AM EDT Inhaled Oxygen Concentration - - Weight 81.2 kg (179 lb) 04/12/2021 6:34 AM EDT Height 177.8 cm (5' 10 ) 04/12/2021 6:34 AM EDT Body Mass Index 25.68 04/12/2021 6:34 AM EDT Plan of Treatment Health Maintenance Due Date Last Done Comments TDAP/TD VACCINES (1 - Tdap) 1974 COLOGUARD 2000 COLON CANCER SCREENING 5 YEA R SIGMOIDOSCOPY 2000 COLONOSCOPY 2000 [address] CANCER SCREENING 2000 CT COLONOGRAPHY 2000 FECAL OCCULT BLOOD TEST 2000 FIT Testing (1 year) 2000 Pneumococcal Vaccine 50+ (1 of 1 - PCV) 2005 AAA SCREEN ONCE 2020 ANNUAL PHYSICAL 04/10/2021 HEPATITIS C SCREENING 04/10/2021 INFLUENZA VACCINE 06/25/2025 COVID-19 Vaccine ( season) 2025, 02/08/2021 ZOSTER VACCINE Completed 12/09/2020, 08/20/2020 Medical Devices Implanted Type Area Textile Screen Printer Device Identifier Shelf Expiration Date Model / Serial / Lot Hemost Abs Surgifoam Sz100 8x12 10mm - [id number] Implanted:Qty: 1 on 04/12/2021 by Lyndon Gong MD at [facility] Implant N/A: Spine Lumbar ETHICON DIV OF J AND J 1974 / / Kt Seal Hemos Abs Floseal Matrx Fast/Prep 5ml - [id number] Implanted:Qty: 1 on 04/12/2021 by Lyndon Gong MD at [facility] Implant N/A: Spine Lumbar [facility] 01/08/2023 [id number] / / [id number] Allogrft Bone Vivigen Celluar Matrx Fz 10 - [id number] - [id number] Implanted:Qty: 1 on 04/12/2021 by Lyndon Gong MD at [facility] Implant N/A: Spine Lumbar [facility] 02/02/2022 [id number] / [id number] / Allogrft Bone Vivigen Celluar Matrx Fz 10 - [id number] - [id number] Implanted:Qty: 1 on 04/12/2021 by Lyndon Gong MD at [facility] Implant N/A: Spine Lumbar [facility] 03/24/2022 [id number] / [id number] / Scrw Jesse Viper Pls5.5 Ti Fix 6x45mm - [id number] Implanted:Qty: 6 on 04/12/2021 by Lyndon Gnog MD at [facility] Implant N/A: Spine Lumbar DEPUY SPINE [id number] / / Jose Alberto Prelrd Spine Expedium W/Line 5.5x60mm - [id number] Implanted:Qty: 2 on 04/12/2021 by Lyndon Gong MD at [facility] Implant N/A: Spine Lumbar DEPUY SPINE [id number] / / Scrw Viper [address] - [id number] Implanted:Qty: 6 on 04/12/2021 by Lyndon Gong MD at [facility] Implant N/A: Spine Lumbar DEPUY SPINE [id number] / / Wax Bone Hemo Aesculap 2.5gm - [id number] Implanted:Qty: 1 on 04/12/2021 by Lyndon Gong MD at [facility] Implant N/A: Spine Lumbar [employer] A B [place] [id number] / / Implant Description:bilat hip replac ement implants Insurance [facility] [place] [id number] [place] ADVANTAGE Advance Directives * CPR (Attempt to Resuscitate) (Latest Code Status on File) Date Activated Date Inactivated Comments 04/12/2021 12:40 PM 04/13/2021 4:27 PM Question Answer Comments Code Status (Patient has no pulse and is not breathing): CPR (Attempt to Resuscitate) Medical Interventions (Patie nt has pulse or is breathing): Full Healthcare Agents on File Name Relationship Healthcare Agent Relationshi p Communication Riddhi Lopez Spouse Power of Supervisor [employer] for He althcare Care Teams Jewel Hole Gauger Relationship Specialty Start Date End Date Juwan Monte MD [facility] [address] [place] [address] PCP - General Internal Medicine 04/10/21
--- OUTSIDE RECORDS SUMMARY | 2025-09-07 07:21 | XMS_ITS | Clinical Summary ---
Author Organization [employer] ([place], [place], [place], [place]) Address [address] [place] [address] Care Team Providers Care Sprinkler Fitter Apprentice Name Role Phone Juwan Monte MD Primary Care Provider [phone] Allergies Active Allergy Reactions Criticality Noted Date [...] total) by mouth as needed. Active Ubidecar/Fish Oil/Mcintyre-3/Vit E (CO Q71-YWES OIL-OMEGA 3-E ORAL) Take by mouth. Active diphenhydramine HCl (ZZZQUIL ORAL) Take by mouth every night as needed 2 GUMMIES. Active Social History Tobacco Use Types Packs/Day Years Used Date Smoking Tobacco: Former Cigarettes 0.5 8 1 974 - 1982 Smokeless Tobacco: Never Tobacco Cessation:Counseling Given: Not [...] Date Edu rded Speak language other than Argentine at home Not on file 12/13/2023 Want [...] 02/27/2023 8:46 AM EDT Plan of Treatment Health Maintenance Due Date Last Done Comments Medicare Initial AWV G0438 CT Colonography 1955 Colonoscopy 1955 Colorectal Cancer Screening 1955 FOBT/FIT 1955 Fit-DNA (Cologuard) 1955 Sigmoidoscopy 1955 Depression Screening (12+) 1967 Hepatitis C Screening 1973 DTAP/TDAP/TD VACCINES (1 - Tdap) 1974 Pneumococcal 50+ years (1 of 1 - PCV) 2005 Tobacco Cessation Counseling and Screening (12+) 02/28/2024 02/27/2023 Falls Risk Screening 11/25/2024 COVID-19 VACCINE ( season) 2025 11/28/2021, 03/08/2021, 02/08/2021 Influenza Vaccine (#1) 2025 08/20/2020 Respiratory Syncytial Virus (RSV) Adult or (1 - 1-dose 75+ series) 2030 Shingles Vaccine (Zoster) Completed 12/09/2020, Medical Devices Implanted Type Area Intern Device Identifier Shelf Expiration Date Model / Serial / Lot Bone Vivigen Formable [id number] - [id number] Implanted:Qty: 1 on 03/06/2023 by Quan Perkins MD at [facility] IMPLANTS N/A: Neck LIFENET:LIFENET TRANSPLANT SRV 02/05/2024 [id number] 1 / [id number] / Cage Eit Cif H 6mm 8deg L [id number] - [id number] Implanted:Qty: 2 on 03/06/2023 by Quan Perkins MD at [facility] IMPLANTS N/A: Neck J &J:DEPUY:DEPUY SPINE 05/24/2026 [id number] / / [id number] Plt Ant Skyln Hybrd Lvl2 32mm 1867-02-032 - [id number] Implanted:Qty: 1 on 03/06/2023 by Quan Perkins MD at [facility] IMPLANTS N/A: Neck J &J:DEPUY:DEPUY SPINE 1867-[birth year]-28 2 / 1867-12-28 2 / Scr Skyln Vari Sd 18mm 1867-50-018 - [id number] Implanted:Qty: 6 on 03/06/2023 by Quan Perkins MD at [facility] IMPLANTS N/A: Neck J &J:DEPUY:DEPUY SPINE 8 / 8 / [facility] P[facility] MAP Care Teams Sprinkler Fitter Apprentice Relationship Specialty Start Date End Date Juwan Monte MD [address] [place] [address] [place] [id number] PCP - General General Internal Medicine 02/13/23
[2025-09-07 07:30] LABS: Hematocrit 46.7 % (42.0-52.0); Hemoglobin 16.3 g/dL (14.1-18.0); Immature Granulocytes % 0.2 %; Mean Corpuscular HGB Conc 34.9 g/dL (31.8-35.4); Mean Corpuscular Hemoglobin 31.8 pg (27.0-31.2); Mean Corpuscular Volume 91.2 fl (80-94); Nucleated Red Blood Cells % 0 %; Platelet Count 218 K/mm3 (142-424); Red Blood Count 5.12 M/mm3 (4.60-6.20); Red Cell Distribution Width-SD 40.4 fL; White Blood Count 4.9 K/mm3 (4.8-10.8)
[2025-09-07 08:23] LABS: Alanine Aminotransferase 26 U/L (12-78); Albumin Level 4.0 g/dl (3.5-5.0); Albumin/Globulin Ratio 1.9 (1.1-1.8); Alkaline Phosphatase 100 U/L (38-126); Anion Gap 11.4 mEq/L (5-15); Aspartate Amino Transferase 28 U/L (17-59); Bilirubin,Total 1.5 mg/dl (0.2-1.3); Blood Urea Nitrogen 17 mg/dl (9-20); Calcium 9.1 mg/dl (8.4-10.2); Carbon Dioxide 31 mmol/L (22.0-30.0); Chloride 103 mmol/L (98-107); Cholesterol 139 mg/dl (140-200); Creatinine,Serum 0.80 mg/dl (0.66-1.25); Estimated Glomerular Filt Rate 96 ml/min (>60); GFR (African American) 116 ML/MIN (>60); Globulin 2.1 g/dL (1.3-3.2); Glucose 102 mg/dl (74-100); HDL Cholesterol 45 mg/dl (40-60); Potassium 4.4 mmoL/L (3.5-5.1); Sodium 141 mmol/L (136-145); Total Protein,Serum 6.1 g/dl (6.3-8.2); Triglycerides 122 mg/dl (30-150)
== END 2025-09-07 23:59 | disposition home or self-care (01) ==
LOC: LAB 07:19
PROVIDERS: PCP Internal Medicine; Visit Provider Internal Medicine
DX: G60.9 Hereditary and idiopathic neuropathy, unspecified (principal); I10 Essential (primary) hypertension; E78.5 Hyperlipidemia, unspecified
CPT/HCPCS: 36415; 80053; 80061; 85025